=== PATIENT | female | born 1950 | race Caucasian/White ===

== ENCOUNTER 2022-03-27 06:55 | Observation (INO) ==
[~2022-03-27 06:55] MED LIST: Buffered Lidocaine 1% SYRIN 1 ml INTRADERM ONE; Lactated Ringers 1000 ml BAG 1,000 ML IV SCH
[2022-03-27] MEDS ORDERED: ceFAZolin 2 GM PREMIX 2 GM/50 ML BAG ONE (07:13)
[2022-03-27] MEDS ORDERED: ROPIVACAINE 5 MG/ML 30 ML BTL (0.5%) ONE (08:06)
[2022-03-27] MEDS ORDERED: Lidocaine 1% MPF 5 ML VIAL ONE (08:06)
[2022-03-27] MEDS ORDERED: fentaNYL 100 mcg/2 ml 50 MCG/ML VIAL ONE ×2 (08:07→14:06)
[2022-03-27] MEDS ORDERED: Midazolam 2 mg/2 ml VIAL 1 mg/ml 2 ml VIAL (2 mg) ONE (08:07)
[2022-03-27] MEDS ORDERED: Phenylephrine IV 10 MG/ML 1 ml VIAL ONE (09:29)
[2022-03-27] MEDS ORDERED: Ondansetron 4 mg VIAL 2 MG/ML 2 ml VIAL ONE (10:21)
[2022-03-27] MEDS ORDERED: Dexamethasone IV 4 MG/ML VIAL 1 ml VIAL ONE (10:21)
[2022-03-27] MEDS ORDERED: Ondansetron ODT 4 mg TAB 4 MG TAB PO PRN (10:36)
[2022-03-27] MEDS ORDERED: Magnesium Hydroxide LIQ 30 ML UDC PO PRN (10:36)
[2022-03-27] MEDS ORDERED: Morphine 2 MG/ML SYRINGE IV PRN (10:36)
[2022-03-27] MEDS ORDERED: Ondansetron 4 mg VIAL 2 MG/ML 2 ml VIAL IV PRN (10:36)
[2022-03-27] MEDS ORDERED: Lactulose 30 ml UDC PO PRN (10:36)
[2022-03-27] MEDS ORDERED: NFT: Estradiol VAG CM (NF) 1 APPLIC TUBE VAGINAL SCH (11:00)
[2022-03-27] MEDS ORDERED: Naloxone 0.4 mg VIAL 0.4 mg/ml 1 ml VIAL IV PRN (11:39)
[2022-03-27] MEDS ORDERED: fentaNYL 100 mcg/2 ml 50 MCG/ML VIAL IV PRN (11:39)
[2022-03-27] MEDS ORDERED: Propofol 10 MG/ML 20 ML BTL ONE (11:44)
[2022-03-27] MEDS ORDERED: Metoclopramide 5 MG/ML VIAL (10 mg) IV SLOW PU PRN (12:28)
[2022-03-27] MEDS: Lactated Ringers 1000 ml BAG 1,000 ML IV SCH (15:50)
[2022-03-27] MEDS: ceFAZolin 1 GM ADVAN 1 GM in NS 0.9% 50 ML 50 ML IVPB SCH (18:22)
[2022-03-27] MEDS: Magnesium Hydroxide LIQ 30 ML UDC PO SCH (20:19)
[2022-03-28] MEDS: ceFAZolin 1 GM ADVAN 1 GM in NS 0.9% 50 ML 50 ML IVPB SCH ×2 (02:11→09:40)
[2022-03-28] MEDS: Lactated Ringers 1000 ml BAG 1,000 ML IV SCH (02:11)
[2022-03-28 05:11] LABS: Hematocrit 37 % (35-47); Hemoglobin 12.5 g/dL (12.0-16.0); Mean Platelet Volume 7.7 fL (7.4-10.4); Platelet Count 211 10^3/uL (150-450)
[2022-03-28 05:32] LABS: Calcium 8.2 mg/dL (8.6-10.3); Potassium 4.3 mmol/L (3.5-5.0); eGFR CKD-EPI 94.4 (>60)
[2022-03-28] MEDS ORDERED: Vitamin THERAPEUTIC TAB PO SCH (09:00)
[2022-03-28] MEDS: Magnesium Hydroxide LIQ 30 ML UDC PO SCH (09:49)
[2022-03-28 11:30] VITALS: BP 108/69
== END 2022-03-28 13:50 | disposition home or self-care (01) ==
LOC: SSU 06:55 → OR 06:55 → SSU 18:16
PROVIDERS: ADMIT Orthopaedic Surgery Adult Reconstructive Orthopaedic Surgery; ATTEND Orthopaedic Surgery Adult Reconstructive Orthopaedic Surgery